=== PATIENT | female | born 1955 | race Caucasian/White ===

== ENCOUNTER 2025-07-17 09:40 | Outpatient (CLI) | payer MEDICARE ==
[2025-07-17 11:07] LABS: Estimated GFR - POC 94.0
[2025-07-17] MEDS ORDERED: Iopamidol 300 61% 100 ML VIAL FS ONE (14:20)
== END 2025-07-17 09:41 | disposition home or self-care (01) ==
LOC: CSHCT 09:40
PROVIDERS: ATTEND Internal Medicine Gastroenterology
DX: K57.92 Diverticulitis of intestine, part unspecified, without perforation or abscess without bleeding (principal)
CPT/HCPCS: 74177; 82565; Q9967